=== PATIENT | female | born 1965 | race Caucasian/White ===

== ENCOUNTER → 2017-05-27 | Outpatient (CLI) | payer OTHER | END | disposition home or self-care (01) | LOC: CFH 09:25 | DX: Z12.31 Encounter for screening mammogram for malignant neoplasm of breast (principal) | CPT/HCPCS: 77063; 77067 ==

== ENCOUNTER 2019-02-27 17:42 | Inpatient (IN) | payer OTHER ==
[~2019-02-27] VITALS: Ht 157.5 cm; Wt 75.1 kg
[2019-02-27] MEDS ORDERED: SODIUM CHLORIDE FLUSH 10ML SYR IVF ONE (18:00)
[2019-02-27] MEDS ORDERED: SODIUM CHLORIDE 0.9% 1,000ML IVBOLUS ONE (18:00)
[2019-02-27 18:24] LABS: MEAN CORPUSCULAR HEMOGLOBIN 35.5 pg (27.0-34.8); MEAN CORPUSCULAR HGB CONC 33.8 g/dL (32.4-35.8); MEAN PLATELET VOLUME 7.2 fL (7.4-10.4); PLATELET COUNT 249 x10^3/uL (130-400); RED BLOOD COUNT 4.09 x10^6/uL (3.82-5.3); RED CELL DISTRIBUTION WIDTH 13.5 % (9.6-15.2)
[2019-02-27 18:30] LABS: ALANINE AMINOTRANSFERASE 140 U/L (12-78); ALBUMIN 3.9 g/dL (3.4-5.0); ANION GAP 6 mmol/L (5-15); CALCIUM 8.7 mg/dL (8.5-10.1); CHLORIDE 102 mmol/L (98-107); CREATININE 0.83 mg/dL (0.55-1.02)
[2019-02-27 18:32] LABS: ALKALINE PHOSPHATASE 98 U/L (45-117); BILIRUBIN,TOTAL 0.8 mg/dL (0.2-1.0); TOTAL PROTEIN 8.9 g/dL (6.4-8.2)
--- NOTE | 2019-02-27 18:45 | NUR ---
PIV AND 1L NS STARTED.
[2019-02-27] MEDS ORDERED: LEVO50TA5 PO (18:46)
[2019-02-27] MEDS ORDERED: APIX5TAB PO (18:46)
[2019-02-27] MEDS ORDERED: LISI-424 PO (18:46)
[2019-02-27] MEDS ORDERED: ESCI10TA PO (18:46)
[2019-02-27] MEDS ORDERED: ERGO500018 PO (18:46)
[2019-02-27] MEDS ORDERED: LORazepam 2 MG/ML, 1ML ONE ×2 (18:49→19:27)
[2019-02-27] MEDS: LORazepam 2 MG/ML, 1ML IVPush PRN ×2 (18:52→19:31)
[2019-02-27] MEDS ORDERED: MAGNESIUM SULFATE 1 GM, THIAMINE 100 MG, FOLIC ACID 1 MG, MVI ADULT 10 ML in SODIUM CHL... IV ONE (19:00)
--- NOTE | 2019-02-27 19:05 | NUR ---
LATE ENTRY: THIS IS A 53 YO F WHO STATES SHE IS WITHDRAWING FROM ALCOHOL. SHE STATES THAT SHE DRINKS ABOUT 1-2 BOTTLES A DAY AND HER LAST DRINK WAS 24 HOURS AGO. SHE STATES THAT SHE DRINKS BECAUSE SHE IS BORED BUT WANTS TO STOP. RESPIRATIONS EVEN AND UNLABORED. PATIENT HAS MILD TREMORS. CONVERSING WITH STAFF.
[2019-02-27 19:23] LABS: BASOPHILS # (AUTO) 0.03 x10^3/uL (0-0.1); BASOPHILS % (AUTO) 1 % (0-1); EOSINOPHILS # (AUTO) 0.03 x10^3/uL (0-0.4); EOSINOPHILS % (AUTO) 1 % (1-7); LYMPHOCYTES # (AUTO) 0.77 x10^3/uL (1-3.4); LYMPHOCYTES % (AUTO) 26 % (22-44); MD SCAN; MONOCYTES # (AUTO) 0.54 x10^3/uL (0.2-0.8); MONOCYTES % (AUTO) 19 % (2-9); NEUTROPHILS # (AUTO) 1.55 x10^3/uL (1.8-6.8); NEUTROPHILS % (AUTO) 53 % (42-75)
[2019-02-27] MEDS ORDERED: LORazepam 1MG TABLET PO PRN ×2 (20:00)
[2019-02-27] MEDS ORDERED: LORazepam 2 MG/ML, 1ML IV PRN ×4 (20:00)
[2019-02-27] MEDS ORDERED: LABETALOL 5MG/ML, 20ML IVPush PRN (20:00)
[2019-02-27 20:30] VITALS: BP 170/126
[2019-02-27 20:55] VITALS: BP 165/98
[2019-02-27] MEDS: ERGOCALCIFEROL 50,000 UNIT CAPSULE PO SCH (20:56)
[2019-02-27] MEDS ORDERED: DIAZEPAM 5 MG TABLET PO ONE (21:00)
[2019-02-27] MEDS: hydrALAzine 20 MG/ML, 1ML IVPush PRN (22:25)
[2019-02-27 22:32] VITALS: BP 167/125
[2019-02-27] MEDS: LORazepam 2 MG/ML, 1ML IV PRN (22:58)
[2019-02-27 23:10] LABS: AMPHETAMINE SCREEN, URINE Negative (Negative); BARBITURATE SCREEN, URINE Negative (Negative); BENZODIAZEPINE SCREEN, URINE Negative (Negative); CANNABINOID SCREEN, URINE Negative (Negative); COCAINE SCREEN, URINE Negative (Negative); METHADONE SCREEN, URINE Negative (Negative); OPIATE SCREEN, URINE Negative (Negative)
[2019-02-27 23:17] VITALS: BP 171/124
[2019-02-27 23:35] VITALS: BP 169/115
[2019-02-28] VITALS (8 sets, daily range): BP systolic 120–152; BP diastolic 84–104
[2019-02-28] MEDS: LORazepam 0.5MG TABLET PO PRN ×2 (03:12→08:04)
[2019-02-28 06:30] LABS: ALBUMIN 3.2 g/dL (3.4-5.0); CHLORIDE 102 mmol/L (98-107)
[2019-02-28 06:32] LABS: MEAN CORPUSCULAR HEMOGLOBIN 35.2 pg (27.0-34.8); MEAN CORPUSCULAR HGB CONC 33.9 g/dL (32.4-35.8); MEAN CORPUSCULAR VOLUME 103.8 fL (80-100); MEAN PLATELET VOLUME 7.2 fL (7.4-10.4); PLATELET COUNT 203 x10^3/uL (130-400); RED BLOOD COUNT 3.54 x10^6/uL (3.82-5.3); RED CELL DISTRIBUTION WIDTH 13.3 % (9.6-15.2)
[2019-02-28] MEDS: POTASSIUM CHLORIDE 20 MEQ, MAGNESIUM SULFATE 2 GM, THIAMINE 200 MG, MVI ADULT 10 ML, FO... IV SCH ×3 (06:35→17:55)
[2019-02-28 06:39] LABS: ALANINE AMINOTRANSFERASE 103 U/L (12-78); ALKALINE PHOSPHATASE 70 U/L (45-117); ANION GAP 9 mmol/L (5-15); CALCIUM 7.8 mg/dL (8.5-10.1); CREATININE 0.56 mg/dL (0.55-1.02); TOTAL PROTEIN 7.3 g/dL (6.4-8.2)
[2019-02-28] MEDS: LEVOTHYROXINE 50 MCG TABLET PO SCH (06:42)
[2019-02-28 06:52] LABS: MD YES
[2019-02-28 07:04] LABS: <PLATELET ESTIMATE> ADEQUATE; <PLT MORPHOLOGY> NORMAL PLT MORPH; LYMPH#(MANUAL) 0.96 x10^3/uL (1-3.4); LYMPHS% (MANUAL) 37 % (22-44); MONOS#(MANUAL) 0.47 x10^3/uL (0.3-2.7); MONOS% (MANUAL) 18 % (2-9); SEG#(MANUAL) 1.17 x10^3/uL (1.8-6.8); SEGS% (MANUAL) 45 % (42-75)
[2019-02-28] MEDS: ESCITALOPRAM 10MG TABLET PO SCH (08:03)
[2019-02-28] MEDS: ERGOCALCIFEROL 50,000 UNIT CAPSULE PO SCH ×4 (08:03→20:42)
[2019-02-28] MEDS: LISINOPRIL 5 MG TABLET PO SCH (08:04)
[2019-02-28] MEDS ORDERED: APIXABAN 5 MG TABLET PO SCH (09:00)
[2019-02-28] MEDS: LORazepam 1MG TABLET PO PRN ×3 (11:47→20:39)
[2019-02-28] MEDS: LACTATED RINGERS 1,000 ML IV SCH ×2 (11:47→20:48)
[2019-02-28] MEDS ORDERED: CHLORDIAZEPOXIDE 25 MG CAPSULE PO SCH (12:00)
[2019-02-28] MEDS ORDERED: MAGNESIUM SULFATE 3 GM in SODIUM CHLORIDE 0.9% 100 ML IV ONE (12:00)
[2019-02-28] MEDS: CHLORDIAZEPOXIDE 5 MG CAPSULE PO SCH ×2 (14:05→23:17)
[2019-02-28] MEDS: APIXABAN 5 MG TABLET PO SCH (20:38)
[2019-02-28] MEDS: ACETAMINOPHEN 325 MG TABLET PO PRN (23:14)
[2019-02-28] MEDS: ONDANSETRON 2MG/ML, 2ML IVPush PRN (23:19)
[2019-03-01 01:37] VITALS: BP 137/89
[2019-03-01] MEDS: POTASSIUM CHLORIDE 20 MEQ, MAGNESIUM SULFATE 2 GM, THIAMINE 200 MG, MVI ADULT 10 ML, FO... IV SCH ×2 (03:34→17:54)
[2019-03-01] MEDS: LACTATED RINGERS 1,000 ML IV SCH ×2 (04:29→12:16)
[2019-03-01] MEDS: LORazepam 0.5MG TABLET PO PRN ×2 (06:12→13:13)
[2019-03-01] MEDS: LEVOTHYROXINE 50 MCG TABLET PO SCH (06:12)
[2019-03-01 06:52] VITALS: BP_SYST 153; BP_SYST 159; BP_DIAS 107; BP_DIAS 111
[2019-03-01] MEDS: CHLORDIAZEPOXIDE 5 MG CAPSULE PO SCH ×2 (09:25→23:10)
[2019-03-01] MEDS: LISINOPRIL 5 MG TABLET PO SCH (09:26)
[2019-03-01] MEDS: APIXABAN 5 MG TABLET PO SCH ×2 (09:26→20:45)
[2019-03-01] MEDS: ERGOCALCIFEROL 50,000 UNIT CAPSULE PO SCH ×2 (09:26→20:36)
[2019-03-01] MEDS: LORazepam 1MG TABLET PO PRN ×3 (09:26→20:45)
[2019-03-01] MEDS: ESCITALOPRAM 10MG TABLET PO SCH (09:26)
[2019-03-01 10:04] LABS: ANION GAP 6 mmol/L (5-15); CALCIUM 8.4 mg/dL (8.5-10.1); CHLORIDE 106 mmol/L (98-107); CREATININE 0.69 mg/dL (0.55-1.02)
[2019-03-01 12:29] VITALS: BP 156/111
[2019-03-01] MEDS: hydrALAzine 20 MG/ML, 1ML IVPush PRN (13:13)
[2019-03-01 17:43] VITALS: BP 147/98
[2019-03-01 18:52] VITALS: BP 151/93
[2019-03-01 19:40] VITALS: BP 145/97
[2019-03-02 01:11] VITALS: BP 153/110
[2019-03-02 01:21] VITALS: BP 147/102
[2019-03-02] MEDS: LORazepam 1MG TABLET PO PRN ×6 (01:27→18:07)
[2019-03-02 02:06] VITALS: BP 132/89
[2019-03-02] MEDS: POTASSIUM CHLORIDE 20 MEQ, MAGNESIUM SULFATE 2 GM, THIAMINE 200 MG, MVI ADULT 10 ML, FO... IV SCH (04:16)
[2019-03-02] MEDS: LACTATED RINGERS 1,000 ML IV SCH ×3 (04:42→21:35)
[2019-03-02] MEDS: ACETAMINOPHEN 325 MG TABLET PO PRN (04:46)
[2019-03-02 06:01] LABS: ANION GAP 8 mmol/L (5-15); CALCIUM 8.4 mg/dL (8.5-10.1); CHLORIDE 106 mmol/L (98-107)
[2019-03-02 06:05] LABS: ALANINE AMINOTRANSFERASE 73 U/L (12-78); ALKALINE PHOSPHATASE 68 U/L (45-117); BILIRUBIN,TOTAL 1.5 mg/dL (0.2-1.0)
[2019-03-02] MEDS: FOLIC ACID 1 MG TABLET PO SCH ×2 (06:31→07:19)
[2019-03-02] MEDS: LEVOTHYROXINE 50 MCG TABLET PO SCH (06:31)
[2019-03-02 07:58] VITALS: BP 142/98
[2019-03-02] MEDS: THIAMINE 100MG TABLET PO SCH (08:36)
[2019-03-02] MEDS: ERGOCALCIFEROL 50,000 UNIT CAPSULE PO SCH ×2 (08:36→21:38)
[2019-03-02] MEDS: CHLORDIAZEPOXIDE 5 MG CAPSULE PO SCH ×2 (08:36→21:50)
[2019-03-02] MEDS: APIXABAN 5 MG TABLET PO SCH ×2 (08:37→21:38)
[2019-03-02] MEDS: LISINOPRIL 5 MG TABLET PO SCH (08:37)
[2019-03-02] MEDS: ESCITALOPRAM 10MG TABLET PO SCH (08:37)
[2019-03-02] MEDS: ONDANSETRON 2MG/ML, 2ML IVPush PRN (12:24)
[2019-03-02 13:36] VITALS: BP 144/95
[2019-03-02 19:26] VITALS: BP 141/95
[2019-03-02] MEDS: LORazepam 0.5MG TABLET PO PRN (22:57)
[2019-03-03 01:49] VITALS: BP 148/98
[2019-03-03] MEDS: LACTATED RINGERS 1,000 ML IV SCH ×3 (04:39→21:09)
[2019-03-03] MEDS: LORazepam 1MG TABLET PO PRN ×2 (04:43→10:32)
[2019-03-03] MEDS: LEVOTHYROXINE 50 MCG TABLET PO SCH (06:31)
[2019-03-03 07:53] VITALS: BP_SYST 152; BP_SYST 161; BP_DIAS 101; BP_DIAS 120
[2019-03-03] MEDS: CHLORDIAZEPOXIDE 5 MG CAPSULE PO SCH ×3 (09:00→21:08)
[2019-03-03] MEDS: ERGOCALCIFEROL 50,000 UNIT CAPSULE PO SCH ×2 (09:00→21:09)
[2019-03-03] MEDS: ESCITALOPRAM 10MG TABLET PO SCH (09:17)
[2019-03-03] MEDS: LISINOPRIL 5 MG TABLET PO SCH (09:18)
[2019-03-03] MEDS: APIXABAN 5 MG TABLET PO SCH ×2 (09:18→21:09)
[2019-03-03] MEDS: FOLIC ACID 1 MG TABLET PO SCH (09:18)
[2019-03-03] MEDS: THIAMINE 100MG TABLET PO SCH (09:18)
[2019-03-03 12:46] VITALS: BP_SYST 145; BP_SYST 154; BP_DIAS 102; BP_DIAS 93
[2019-03-03] MEDS: LORazepam 0.5MG TABLET PO PRN ×2 (13:41→18:03)
[2019-03-03 20:12] VITALS: BP 159/112
[2019-03-03 20:53] VITALS: BP 163/109
[2019-03-03] MEDS: ONDANSETRON 2MG/ML, 2ML IVPush PRN (21:09)
[2019-03-03] MEDS: hydrALAzine 20 MG/ML, 1ML IVPush PRN (21:09)
[2019-03-03 22:06] VITALS: BP 146/84
[2019-03-03] MEDS: LORazepam 2 MG/ML, 1ML IV PRN (22:13)
[2019-03-04 02:16] VITALS: BP 126/83
[2019-03-04] MEDS: LEVOTHYROXINE 50 MCG TABLET PO SCH (05:30)
[2019-03-04] MEDS: LORazepam 0.5MG TABLET PO PRN ×2 (05:30→18:13)
[2019-03-04] MEDS: LACTATED RINGERS 1,000 ML IV SCH ×2 (05:30→16:06)
[2019-03-04 06:13] LABS: ANION GAP 7 mmol/L (5-15); CHLORIDE 103 mmol/L (98-107); CREATININE 0.67 mg/dL (0.55-1.02)
[2019-03-04 06:14] LABS: BASOPHILS # (AUTO) 0.02 x10^3/uL (0-0.1); BASOPHILS % (AUTO) 1 % (0-1); EOSINOPHILS # (AUTO) 0.07 x10^3/uL (0-0.4); EOSINOPHILS % (AUTO) 2 % (1-7); LYMPHOCYTES # (AUTO) 0.95 x10^3/uL (1-3.4); LYMPHOCYTES % (AUTO) 25 % (22-44); MD NO; MEAN CORPUSCULAR HEMOGLOBIN 35.5 pg (27.0-34.8); MEAN CORPUSCULAR HGB CONC 33.2 g/dL (32.4-35.8); MEAN CORPUSCULAR VOLUME 106.7 fL (80-100); MEAN PLATELET VOLUME 7.6 fL (7.4-10.4); MONOCYTES % (AUTO) 16 % (2-9); NEUTROPHILS # (AUTO) 2.11 x10^3/uL (1.8-6.8); NEUTROPHILS % (AUTO) 56 % (42-75); PLATELET COUNT 244 x10^3/uL (130-400); RED BLOOD COUNT 3.46 x10^6/uL (3.82-5.3); RED CELL DISTRIBUTION WIDTH 13.4 % (9.6-15.2)
[2019-03-04] MEDS ORDERED: CHLORDIAZEPOXIDE 25 MG CAPSULE PO SCH (07:00)
[2019-03-04] MEDS ORDERED: MAGNESIUM SULFATE PMX 2GM/50ML 50 ML IV ONE (07:00)
[2019-03-04 07:05] VITALS: BP 141/98
[2019-03-04] MEDS: ERGOCALCIFEROL 50,000 UNIT CAPSULE PO SCH ×2 (09:00→21:17)
[2019-03-04] MEDS: FOLIC ACID 1 MG TABLET PO SCH (09:14)
[2019-03-04] MEDS: THIAMINE 100MG TABLET PO SCH (09:14)
[2019-03-04] MEDS: APIXABAN 5 MG TABLET PO SCH ×2 (09:14→21:17)
[2019-03-04] MEDS: LISINOPRIL 5 MG TABLET PO SCH (09:14)
[2019-03-04] MEDS: LORazepam 1MG TABLET PO PRN ×3 (09:14→21:47)
[2019-03-04] MEDS: ESCITALOPRAM 10MG TABLET PO SCH (09:14)
[2019-03-04] MEDS ORDERED: CHLORDIAZEPOXIDE 10 MG CAPSULE PO SCH ×2 (09:45→09:46)
[2019-03-04] MEDS ORDERED: CHLORDIAZEPOXIDE 5 MG CAPSULE PO ONE (10:30)
[2019-03-04 13:23] VITALS: BP 136/96
[2019-03-04] MEDS ORDERED: SENNA/DOCUSATE TABLET PO PRN (14:30)
[2019-03-04] MEDS ORDERED: POLYETHYLENE GLYCOL 17 GM PACKET PO PRN (14:30)
[2019-03-04] MEDS: ACETAMINOPHEN 325 MG TABLET PO PRN (16:06)
[2019-03-04 19:39] VITALS: BP 127/87
[2019-03-05 00:32] VITALS: BP 175/129
[2019-03-05] MEDS: hydrALAzine 20 MG/ML, 1ML IVPush PRN (00:46)
[2019-03-05] MEDS: LACTATED RINGERS 1,000 ML IV SCH (00:47)
[2019-03-05] MEDS: LORazepam 1MG TABLET PO PRN ×2 (00:54→21:23)
[2019-03-05 01:35] VITALS: BP 156/96
[2019-03-05 06:07] LABS: ANION GAP 8 mmol/L (5-15); CALCIUM 9.2 mg/dL (8.5-10.1); CHLORIDE 108 mmol/L (98-107)
[2019-03-05 06:09] LABS: CREATININE 0.69 mg/dL (0.55-1.02)
[2019-03-05] MEDS: LEVOTHYROXINE 50 MCG TABLET PO SCH (06:19)
[2019-03-05] MEDS: LORazepam 0.5MG TABLET PO PRN ×3 (06:23→18:08)
[2019-03-05 06:47] VITALS: BP 151/98
[2019-03-05] MEDS ORDERED: MAGNESIUM SULFATE PMX 2GM/50ML 50 ML IV ONE (08:30)
[2019-03-05] MEDS ORDERED: CHLORDIAZEPOXIDE 5 MG CAPSULE PO SCH (09:00)
[2019-03-05] MEDS: APIXABAN 5 MG TABLET PO SCH ×2 (09:27→21:18)
[2019-03-05] MEDS: ERGOCALCIFEROL 50,000 UNIT CAPSULE PO SCH ×2 (09:27→21:18)
[2019-03-05] MEDS: ESCITALOPRAM 10MG TABLET PO SCH (09:28)
[2019-03-05] MEDS: CHLORDIAZEPOXIDE 10 MG CAPSULE PO SCH ×2 (09:28→09:30)
[2019-03-05] MEDS: LISINOPRIL 5 MG TABLET PO SCH (09:28)
[2019-03-05] MEDS: CHLORDIAZEPOXIDE 5 MG CAPSULE PO SCH (09:28)
[2019-03-05] MEDS: FOLIC ACID 1 MG TABLET PO SCH (09:29)
[2019-03-05] MEDS: THIAMINE 100MG TABLET PO SCH (09:29)
[2019-03-05 12:43] VITALS: BP 158/116
[2019-03-05 13:11] VITALS: BP 118/82
[2019-03-05 19:15] VITALS: BP 136/96
[2019-03-06 00:42] VITALS: BP 148/93
[2019-03-06] MEDS: LEVOTHYROXINE 50 MCG TABLET PO SCH (06:23)
[2019-03-06 07:21] VITALS: BP 143/102
[2019-03-06] MEDS: ESCITALOPRAM 10MG TABLET PO SCH (09:09)
[2019-03-06] MEDS: CHLORDIAZEPOXIDE 5 MG CAPSULE PO SCH (09:09)
[2019-03-06] MEDS: LISINOPRIL 5 MG TABLET PO SCH (09:10)
[2019-03-06] MEDS: APIXABAN 5 MG TABLET PO SCH ×2 (09:10→20:18)
[2019-03-06] MEDS: ERGOCALCIFEROL 50,000 UNIT CAPSULE PO SCH ×2 (09:10→20:18)
[2019-03-06] MEDS: FOLIC ACID 1 MG TABLET PO SCH (09:10)
[2019-03-06] MEDS: THIAMINE 100MG TABLET PO SCH (09:10)
[2019-03-06] MEDS: CHLORDIAZEPOXIDE 10 MG CAPSULE PO SCH (09:10)
[2019-03-06] MEDS: LORazepam 0.5MG TABLET PO PRN ×3 (09:24→20:18)
[2019-03-06 12:29] VITALS: BP 129/89
[2019-03-06 18:38] VITALS: BP 118/82
[2019-03-07 00:15] VITALS: BP 129/90
[2019-03-07] MEDS: LEVOTHYROXINE 50 MCG TABLET PO SCH (05:49)
[2019-03-07 06:15] LABS: ALBUMIN 3.3 g/dL (3.4-5.0); ANION GAP 7 mmol/L (5-15); CALCIUM 9.2 mg/dL (8.5-10.1); CHLORIDE 107 mmol/L (98-107)
[2019-03-07 06:17] LABS: CREATININE 0.67 mg/dL (0.55-1.02)
[2019-03-07 08:33] VITALS: BP 121/91
[2019-03-07] MEDS: FOLIC ACID 1 MG TABLET PO SCH (09:46)
[2019-03-07] MEDS: CHLORDIAZEPOXIDE 5 MG CAPSULE PO SCH (09:46)
[2019-03-07] MEDS: THIAMINE 100MG TABLET PO SCH (09:46)
[2019-03-07] MEDS: ESCITALOPRAM 10MG TABLET PO SCH (09:46)
[2019-03-07] MEDS: CHLORDIAZEPOXIDE 10 MG CAPSULE PO SCH (09:46)
[2019-03-07] MEDS: ERGOCALCIFEROL 50,000 UNIT CAPSULE PO SCH (09:46)
[2019-03-07] MEDS: LISINOPRIL 5 MG TABLET PO SCH (09:47)
[2019-03-07] MEDS: APIXABAN 5 MG TABLET PO SCH (09:47)
[2019-03-07] MEDS ORDERED: FOLI-17 PO (09:53)
[2019-03-07] MEDS ORDERED: THIA100T67 PO (09:53)
[2019-03-07] MEDS ORDERED: APIX5TAB PO (09:53)
== END 2019-03-07 12:15 | disposition home or self-care (01) | DRG 897 ==
LOC: ED 18:40 → EDIP 18:45 → ED 19:19 → 3N 20:15 → DCLOUNGE 03-07 12:03
PROVIDERS: ADMIT Family Medicine; ATTEND Hospitalist
DX: F10.239 Alcohol dependence with withdrawal, unspecified (principal); D75.89 Other specified diseases of blood and blood-forming organs; E03.9 Hypothyroidism, unspecified; E78.5 Hyperlipidemia, unspecified; E83.42 Hypomagnesemia; Y90.9 Presence of alcohol in blood, level not specified; I10 Essential (primary) hypertension; I16.0 Hypertensive urgency; Z88.8 Allergy status to other drugs, medicaments and biological substances; L40.9 Psoriasis, unspecified; Z79.01 Long term (current) use of anticoagulants; Z86.711 Personal history of pulmonary embolism; W18.39XA Other fall on same level, initial encounter; Y93.89 Activity, other specified; Y92.89 Other specified places as the place of occurrence of the external cause; Y99.8 Other external cause status
CPT/HCPCS: 36415; 96374; 96376; 99291; J7042; 70450; 72125; 80048; 80053; 80307; 82040; 83735; 84100; 84443; 85025; 93005; 93970; G0378; J2405; J3411; J3475; J3480; J0360; J2060; J7030; J7120

== ENCOUNTER → 2019-04-24 | Outpatient (CLI) | payer OTHER ==
[~2019-04-24] MED LIST: APIX5TAB PO; ERGO500018 PO; ESCI10TA PO; FOLI-17 PO; LEVO50TA5 PO; LISI-424 PO; THIA100T67 PO
[2019-04-24 16:55] LABS: BASOPHILS # (AUTO) 0.02 x10^3/uL (0-0.1); BASOPHILS % (AUTO) 0 % (0-1); EOSINOPHILS # (AUTO) 0.07 x10^3/uL (0-0.4); EOSINOPHILS % (AUTO) 1 % (1-7); LYMPHOCYTES # (AUTO) 1.36 x10^3/uL (1-3.4); LYMPHOCYTES % (AUTO) 27 % (22-44); MD NO; MEAN CORPUSCULAR HEMOGLOBIN 31.7 pg (27.0-34.8); MEAN CORPUSCULAR HGB CONC 33.8 g/dL (32.4-35.8); MEAN CORPUSCULAR VOLUME 93.6 fL (80-100); MONOCYTES # (AUTO) 0.48 x10^3/uL (0.2-0.8); MONOCYTES % (AUTO) 9 % (2-9); NEUTROPHILS # (AUTO) 3.17 x10^3/uL (1.8-6.8); NEUTROPHILS % (AUTO) 62 % (42-75); PLATELET COUNT 270 x10^3/uL (130-400); RED BLOOD COUNT 4.47 x10^6/uL (3.82-5.3); RED CELL DISTRIBUTION WIDTH 13.2 % (9.6-15.2)
[2019-04-24 16:57] LABS: ALBUMIN 3.4 g/dL (3.4-5.0); ANION GAP 6 mmol/L (5-15); CALCIUM 9.1 mg/dL (8.5-10.1); CHLORIDE 106 mmol/L (98-107)
[2019-04-24 17:25] LABS: ALANINE AMINOTRANSFERASE 27 U/L (12-78); ALKALINE PHOSPHATASE 75 U/L (45-117); BILIRUBIN,TOTAL 0.6 mg/dL (0.2-1.0); CREATININE 0.79 mg/dL (0.55-1.02); TOTAL PROTEIN 7.9 g/dL (6.4-8.2)
[2019-04-24 17:32] LABS: FOLATE LEVEL > 20.0 ng/mL (3.1-17.5)
== END | disposition home or self-care (01) ==
LOC: LAB 15:54
PROVIDERS: ATTEND Nurse Practitioner Family
DX: E55.9 Vitamin D deficiency, unspecified (principal); D75.89 Other specified diseases of blood and blood-forming organs; R94.5 Abnormal results of liver function studies
CPT/HCPCS: 36415; 80053; 82306; 82607; 82746; 85025

== ENCOUNTER 2019-05-01 13:17 | Emergency (ER) | payer OTHER ==
[~2019-05-01] VITALS: Ht 157.5 cm; Wt 68.7 kg
--- NOTE | 2019-05-01 14:03 | NUR ---
PT PRESENTING TO ER FOR CACERES CAUSING PHOTOSENSITIVITY AND NAUSEA, BP ELEVATED. STS RECENT INCREASE IN LISINIPRIL FROM 5MG TO 10MG. CONNECTED TO ALL MONITORING. CALL LIGHT WITHIN REACH. AWAITING ORDERS
[2019-05-01 14:11] LABS: BASOPHILS # (AUTO) 0.03 x10^3/uL (0-0.1); BASOPHILS % (AUTO) 1 % (0-1); EOSINOPHILS # (AUTO) 0.02 x10^3/uL (0-0.4); EOSINOPHILS % (AUTO) 0 % (1-7); LYMPHOCYTES # (AUTO) 1.02 x10^3/uL (1-3.4); LYMPHOCYTES % (AUTO) 17 % (22-44); MD NO; MEAN CORPUSCULAR HEMOGLOBIN 31.7 pg (27.0-34.8); MEAN CORPUSCULAR HGB CONC 34.3 g/dL (32.4-35.8); MEAN CORPUSCULAR VOLUME 92.2 fL (80-100); MONOCYTES # (AUTO) 0.45 x10^3/uL (0.2-0.8); MONOCYTES % (AUTO) 8 % (2-9); NEUTROPHILS # (AUTO) 4.41 x10^3/uL (1.8-6.8); NEUTROPHILS % (AUTO) 74 % (42-75); PLATELET COUNT 284 x10^3/uL (130-400); RED BLOOD COUNT 4.72 x10^6/uL (3.82-5.3); RED CELL DISTRIBUTION WIDTH 12.8 % (9.6-15.2)
[2019-05-01 14:18] LABS: ALBUMIN 3.7 g/dL (3.4-5.0); ANION GAP 8 mmol/L (5-15); CALCIUM 8.9 mg/dL (8.5-10.1); CHLORIDE 103 mmol/L (98-107); CREATININE 0.86 mg/dL (0.55-1.02)
--- NOTE | 2019-05-01 14:39 | NUR ---
ALL RESULTS BACK AT THIS TIME, AWAITING ADDITIONAL ORDERS
[2019-05-01] MEDS ORDERED: LABETALOL 5MG/ML, 20ML ONE (14:48)
[2019-05-01] MEDS ORDERED: SODIUM CHLORIDE FLUSH 10ML SYR IVF ONE (15:00)
[2019-05-01] MEDS ORDERED: LABETALOL 5MG/ML, 20ML IVPush ONE (15:00)
--- NOTE | 2019-05-01 15:05 | NUR ---
PT MEDICATED PER MAY TO DECREASE BP. WILL CONTINUE TO MONITOR
[2019-05-01] MEDS ORDERED: METOCLOPRAMIDE 5 MG/ML, 2ML IVPush ONE (15:30)
[2019-05-01] MEDS ORDERED: KETOROLAC 30 MG/1 ML IVPush ONE (15:30)
[2019-05-01] MEDS ORDERED: DIPHENHYDRAMINE 50 MG/ML, 1ML IVPush ONE (15:30)
[2019-05-01] MEDS ORDERED: METOCLOPRAMIDE 5 MG/ML, 2ML ONE (15:48)
[2019-05-01] MEDS ORDERED: DIPHENHYDRAMINE 50 MG/ML, 1ML ONE (15:48)
[2019-05-01] MEDS ORDERED: KETOROLAC 30 MG/1 ML ONE (15:49)
--- NOTE | 2019-05-01 16:00 | NUR ---
ADDITIONAL ORDERS RECEIVED FOR MEDS FOR CACERES.
[2019-05-01 16:24] VITALS: BP 133/96
--- NOTE | 2019-05-01 16:58 | NUR ---
PT STS CACERES PAIN HAS DECREASED FROM 9/10 TO 4/10 AT THIS TIME. BP HAS DECREASED WELL. AWAITING RECHECK AND DISPO
== END 2019-05-01 17:23 | disposition home or self-care (01) ==
LOC: ED 17:10
DX: R51 Headache (principal); I21.9 Acute myocardial infarction, unspecified; R42 Dizziness and giddiness; M54.2 Cervicalgia; I10 Essential (primary) hypertension
CPT/HCPCS: 36415; 70450; 71045; 80048; 82040; 85025; 93005; 96374; 96375; 99284; J1200; J1885; J2765

== ENCOUNTER → 2019-05-16 | Outpatient (CLI) | payer OTHER ==
[2019-05-16 13:52] LABS: FREE T4 (FREE THYROXINE) 1.24 ng/dL (0.76-1.46)
== END | disposition home or self-care (01) ==
LOC: LAB 12:11
PROVIDERS: ATTEND Nurse Practitioner Family
DX: E67.3 Hypervitaminosis D (principal); E03.8 Other specified hypothyroidism
CPT/HCPCS: 36415; 82306; 84439; 84443

== ENCOUNTER → 2019-06-15 | Outpatient (CLI) | payer OTHER ==
[2019-06-15 14:14] LABS: HCT (SEDRATE) 42.3 % (34.6-47.8)
[2019-06-15 14:24] LABS: C-REACTIVE PROTEIN, QUANT 0.14 mg/dL (0.02-0.49)
== END | disposition home or self-care (01) ==
LOC: LAB 13:56
PROVIDERS: ATTEND Nurse Practitioner Family
DX: M25.50 Pain in unspecified joint (principal); L40.9 Psoriasis, unspecified
CPT/HCPCS: 36415; 81374; 84550; 85651; 86038; 86140; 86200; 86430

== ENCOUNTER → 2019-07-23 | Outpatient (CLI) | payer OTHER | END | disposition home or self-care (01) | LOC: CFH 13:26 | PROVIDERS: ATTEND Nurse Practitioner Family | DX: M50.30 Other cervical disc degeneration, unspecified cervical region (principal); M47.812 Spondylosis without myelopathy or radiculopathy, cervical region; M48.02 Spinal stenosis, cervical region; M25.78 Osteophyte, vertebrae; M79.643 Pain in unspecified hand; R76.8 Other specified abnormal immunological findings in serum | CPT/HCPCS: 72141 ==